=== PATIENT | male | born 1990 | race Caucasian/White ===

== ENCOUNTER 2022-03-31 14:01 | Emergency (ER) | payer OTHER ==
[~2022-03-31] VITALS: Ht 177.8 cm; Wt 77.1 kg
[2022-03-31 14:16] VITALS: BP 123/80
--- NOTE | 2022-03-31 14:24 | NUR ---
Dr. Springer evaluating patient at bedside.
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
--- NOTE | 2022-03-31 14:48 | NUR ---
Patient discharged with v/s stable. Written and verbal after care instructions ABOUT CONCUSSION given and explained. Patient verbalized understanding. Ambulatory with steady gait. All questions addressed prior to discharge. Advised to follow up with PMD. WITH WORK NOTE
== END 2022-03-31 14:47 | disposition home or self-care (01) ==
LOC: MED 14:01
DX: S06.0X0A Concussion without loss of consciousness, initial encounter (principal); X58.XXXA Exposure to other specified factors, initial encounter; Y93.89 Activity, other specified; Y92.89 Other specified places as the place of occurrence of the external cause; Y99.8 Other external cause status
CPT/HCPCS: 99281